=== PATIENT | male | born 1960 | race African-American/Black ===

== ENCOUNTER 2016-09-12 08:34 | Emergency (ER) | payer MEDICAID, OTHER ==
[~2016-09-12] VITALS: Ht 177.8 cm; Wt 74.4 kg
[2016-09-12 09:00] VITALS: BP 138/74
[2016-09-12] MEDS ORDERED: cefTRIAXone SODIUM 250 MG VL IM ONE (09:15)
== END 2016-09-12 09:56 | disposition home or self-care (01) ==
LOC: ER 08:34
DX: A64 Unspecified sexually transmitted disease (principal)
CPT/HCPCS: 96372; 99283; J0696

== ENCOUNTER 2019-02-04 11:38 | Emergency (ER) | payer MEDICAID | END 2019-02-04 11:46 | disposition left against medical advice (07) | LOC: ER 11:38 | DX: M79.643 Pain in unspecified hand (principal); Z53.21 Procedure and treatment not carried out due to patient leaving prior to being seen by health care provider ==